=== PATIENT | female | born 1975 | race Caucasian/White ===

== ENCOUNTER 2018-03-21 14:01 | Emergency (ER) | payer OTHER ==
[~2018-03-21] VITALS: Ht 162.6 cm; Wt 56.7 kg
== END 2018-03-21 21:22 | disposition home or self-care (01) ==
LOC: ER 14:01
DX: K52.9 Noninfective gastroenteritis and colitis, unspecified (principal)

== ENCOUNTER 2018-09-01 08:08 | Outpatient (CLI) | payer OTHER | END 2018-09-01 08:19 | disposition home or self-care (01) | LOC: LAB 08:08 | DX: D64.89 Other specified anemias (principal); E78.2 Mixed hyperlipidemia; E03.8 Other specified hypothyroidism; N39.0 Urinary tract infection, site not specified ==

== ENCOUNTER 2018-09-06 07:32 | Outpatient (CLI) | payer OTHER | END 2018-09-06 07:46 | disposition home or self-care (01) | LOC: SONOGRAMA 07:32 | DX: R10.84 Generalized abdominal pain (principal) ==

== ENCOUNTER 2018-12-19 07:54 | Outpatient (CLI) | payer OTHER | END 2018-12-19 13:06 | disposition HB | LOC: LAB 07:54 | DX: K43.2 Incisional hernia without obstruction or gangrene (principal); Z01.818 Encounter for other preprocedural examination ==

== ENCOUNTER → 2018-12-27 | Day surgery (SDC) | payer OTHER ==
[~2018-12-27] MED LIST: NEURONTIN300 MG PO; PERCOCET 5-3251 EACH PO; POLY119PG PO; TRANEXAMIC ACID PO
== END | disposition home or self-care (01) ==
LOC: CIR.AMB 06:30
DX: K43.0 Incisional hernia with obstruction, without gangrene (principal)

== ENCOUNTER → 2020-04-21 11:36 | Outpatient (CLI) | payer OTHER | END | disposition home or self-care (01) | LOC: LAB 11:36 | PROVIDERS: ATTEND Internal Medicine | DX: D64.89 Other specified anemias (principal); E11.29 Type 2 diabetes mellitus with other diabetic kidney complication; E78.2 Mixed hyperlipidemia; E03.8 Other specified hypothyroidism; N39.0 Urinary tract infection, site not specified ==

== ENCOUNTER → 2020-04-23 | Outpatient (CLI) | payer OTHER | END | disposition home or self-care (01) | LOC: MAMO-SONO 09:54 | PROVIDERS: ATTEND Internal Medicine | DX: Z12.31 Encounter for screening mammogram for malignant neoplasm of breast (principal); N60.12 Diffuse cystic mastopathy of left breast; N60.11 Diffuse cystic mastopathy of right breast ==

== ENCOUNTER 2020-11-25 07:12 | Outpatient (CLI) | payer OTHER | END 2020-11-25 07:14 | disposition home or self-care (01) | LOC: TOM 07:12 | PROVIDERS: ATTEND Internal Medicine | DX: R10.84 Generalized abdominal pain (principal); R10.2 Pelvic and perineal pain ==